=== PATIENT | male | born 1950 | race American Indian/Alaskan Native ===

== ENCOUNTER 2016-11-03 08:42 | Outpatient (CLI) | payer MEDICARE ==
--- NOTE | 2016-11-03 12:04 | Cat Scan Report ---
CT ABDOMEN AND PELVIS WITHOUT CONTRAST INDICATION: Malignant neoplasm of prostate. COMPARISON: None similar at this institution. FINDINGS: Abdomen and pelvis CT performed following oral contrast only. LUNG BASES: Nonspecific distal esophageal wall prominence/thickening, not excluded for gastroesophageal reflux and/or hiatal hernia, amongst others. ABDOMEN: Please note that sensitivity to detect small visceral lesions is limited due to the absence of intravenous contrast. However, grossly unremarkable unenhanced spleen, gallbladder, pancreas, abdominal aorta and IVC. Numerous hepatic and bilateral renal hypodensities, some sub-cm and indeterminate while others may represent simple cysts. Largest 2.2 cm right hepatic hypodensity centrally, axial image 58. Largest left renal cyst is approximately 4.9 cm superiorly while largest right interpolar cyst is approximately 3.3 cm. No hydronephrosis or radiopaque calculi. Small bilateral adrenal somewhat hypodense nodules measuring up to 1.2 cm, likely adenomas. No ascites or definite significant adenopathy. Opacified GI tract nonobstructive. Normal appendix. Mild to moderate colonic stool/possible constipation. PELVIS: Approximately 5.1 cm AP x 6.1 cm transverse enlarged prostate creates an impression at the bladder base that may be correlated for clinically and with PSA. Few tiny prostatic calcifications. Otherwise grossly unremarkable non-opacified urinary bladder and the rectosigmoid. Small right hemipelvic phleboliths. No free fluid or significant adenopathy. Multilevel lumbar spondylosis with moderate to severe disc narrowing, vacuum phenomenon and degenerative spurring. Bilateral hip and SI joints degenerative changes as well. CONCLUSION: No acute CT abnormality on this unenhanced exam with various findings, including enlarged prostate, distal esophageal prominence, possible constipation, hepatic and renal cysts and multilevel lumbar spondylosis, amongst others, as above. Please correlate. Thank you for the opportunity to participate in this patient's care.
--- NOTE | 2016-11-04 07:44 | Nuclear Medicine Report ---
BONE SCAN: History: Malignant neoplasm of prostate. Comparison: No previous bone scan. Comparison is made to the CT of abdomen and pelvis without contrast performed the same day. After injection of isotope, gamma camera imaging of the bony system was done. There is a normal uptake of isotope throughout the bony structures without areas of significantly increased or decreased uptake. Normal uptake in the urinary system is seen. Contamination the perineum is noted. Mild periodontal disease is noted. IMPRESSION: No evidence for metastatic disease to the bones.
== END 2016-11-03 08:43 | disposition home or self-care (01) ==
LOC: EDSEX → NM 08:42
PROVIDERS: ATTEND Urology
DX: C61 Malignant neoplasm of prostate (principal); N28.1 Cyst of kidney, acquired; N40.0 Benign prostatic hyperplasia without lower urinary tract symptoms; E27.8 Other specified disorders of adrenal gland; N42.89 Other specified disorders of prostate; I87.8 Other specified disorders of veins; M47.896 Other spondylosis, lumbar region; M16.0 Bilateral primary osteoarthritis of hip; K05.6 Periodontal disease, unspecified
CPT/HCPCS: 74176; 78306; A9503